=== PATIENT | female | born 1990 | race Caucasian/White ===

== ENCOUNTER → 2016-05-08 13:48 | Outpatient (CLI) | payer MEDICAID ==
[~2016-05-08 13:48] MED LIST: IBUPROFEN600 MG PO; PERCOCET 5-3251 TAB PO; PRENATAL COMPLE1 TAB PO
[2016-05-15 04:28] VITALS: BMI 37.3
== END | disposition home or self-care (01) ==
LOC: D.LDO 13:48
DX: O36.8130 Decreased fetal movements, third trimester, not applicable or unspecified (principal); Z3A.38 38 weeks gestation of pregnancy

== ENCOUNTER 2016-05-15 04:11 | Inpatient (IN) | payer MEDICAID ==
[2016-05-15] VITALS (8 sets, daily range): BP systolic 105–136; BP diastolic 55–86; Ht 172.7 cm; Wt 111.1 kg
[~2016-05-15] VITALS: Ht 172.7 cm; Wt 111.1 kg
[2016-05-15] MEDS ORDERED: PRENATAL COMPLE1 TAB PO (04:27)
[2016-05-15 06:35] LABS: HEMOGLOBIN 11.7 g/dL (12-16); MCH 28.5 pg (26.0-34.0); MCHC 33.4 g/dL (31.0-37.0); MCV 85.4 fL (80.0-100.0); MEAN PLATELET VOLUME 11.2 fL (7.4-10.4); RBC 4.1 10x6/uL (4.00-5.40); RDW 13.3 % (11.5-14.5); WBC 9.8 10x3/uL (4.8-10.8)
[2016-05-15 06:50] LABS: APPEARANCE CLEAR (CLEAR); BILIRUBIN NEGATIVE (NEGATIVE); COLOR STRAW (YELLOW); GLUCOSE NEGATIVE (NEGATIVE); KETONE NEGATIVE (NEGATIVE); LEUKOCYTE ESTERASE NEGATIVE (NEGATIVE); NITRITE NEGATIVE (NEGATIVE); PROTEIN NEGATIVE (NEGATIVE); UROBILINOGEN NORMAL (NORMAL)
[2016-05-15 06:51] LABS: BACTERIA MODERATE /hpf (NONE SEEN); EPITHELIAL CELLS 0-5 /hpf (0-5); RED CELLS - URINE 0-5 /hpf (0-5); WHITE CELLS - URINE 0-5 /hpf (0-5)
--- NOTE | 2016-05-15 19:13 | NUR ---
PT. REQUESTING PAIN MEDS. DR. CAREY ON UNIT AND INFORMED AND QUESTIONED ABOUT ORAL MEDS VERSES IV MEDS. STATES TO CALL ANES.
--- NOTE | 2016-05-15 19:22 | NUR ---
POC EXPLAINED TO PT. PT. INFORMED THAT OR STILL WORKING AT THIS TIME SO BTL IS STILL PENDING. PT. STATES UNDERSTANDING.
--- NOTE | 2016-05-15 19:24 | NUR ---
PT. RATES ABD. CRAMPING AN 8 OF 10 ON PAIN SCALE. PT. LAUGHING AND TALKING WITH FAMILY. RELATES THAT SHE IS UNABLE TO LIFT RT LEG ALTHOUGH CAN LIFT LT. LEG. PAIN MED GIVEN ORDERED. BREATH SOUNDS CLEAR. FUNDUS 2/U AND LOCHIA RUBRA MOD. IV OF LR FLOW RATE DECREASED TO 50CC/HR. IV NOTED IN RT. FOREARM AND WITHOUT EDEMA NOR REDNESS AT SITE.
--- NOTE | 2016-05-15 19:30 | NUR ---
16F ZAMORA CATH. INSERTED PER HOSPITAL PROCEDURE WITH IMMED. RETURN OF 425CC. FUNDUS FIRM U/2. CHELY CARE GIVEN AND CHELY PADS APPLIED. HOB ELEVATED PER PT. REQUEST.
--- NOTE | 2016-05-15 20:15 | NUR ---
LYING ON BACK WITH EYES CLOSED. RESPIRATIONS REGULAR. PT. DOES NOT AROUSE TO THIS NURSE IN ROOM. LIGHTS DIMMED IN ROOM PRESENTLY.
--- NOTE | 2016-05-15 20:55 | NUR ---
PT. CALLED INQUIRING IF ANYONE HAD HEAR WHEN HER BTL WOULD BE DONE. INFORMED THAT DR. CAREY HAD BEEN TO THE OR AND THEY EXPECTED THE CURRENT CASE TO COMPLETE IN 10 MINUTES AND THEN PLANS WOULD BE MADE FOR HER BTL. PT. STATES UNDERSTANDING.
--- NOTE | 2016-05-15 21:41 | NUR ---
AT PRESENT. SCDS APPLIED. OR STATES THEY SHOULD BE READY FOR PT. IN 20 MINUTES.
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
--- NOTE | 2016-05-15 22:05 | NUR ---
TO OR VIA CART. REPORT TO DIRECTOR OF HOME ECONOMICS PER DR. CAREY AND THIS NURSE INFORMED DIRECTOR OF HOME ECONOMICS THAT NO PRE-OPS WERE ORDERED.
--- NOTE | 2016-05-15 23:45 | NUR ---
RECEIVED VIA CART FROM POST TUBAL LIGATION. PT. LETHARGIC BUT AWAKE. STATES SHE IS SLEEPY. BREATH SOUNDS CLEAR AND BOWEL SOUNDS AUDIBLE. ABD. DRESSING NOTED AT UMBILICUS WHICH IS CLEAN AND DRY. IV IN RT. FOREARM WITHOUT REDNESS NOR EDEMA. LACTATED RINGERS FLOW RATE AT 125CC/HR VIA PUMP. CHELY PAD CHANGED AND LOCHIA RUBRA MOD. SCDS CONNECTED TO SLEEVES ALREADY ON LOWER LEGS AND PUMP ON AND FUNCTIONAL. ICE WATER OFFERED BUT PT. DECLINED. ICE CAP TO INCISION AREA. SIDE RAILS UP X 2. PT. REQUEST INFANT REMAIN IN NBN UNTIL SHE REQUEST HIM TO ROOM. NBN INFORMED OF SAME. CALL LIGHT WITHIN PT. REACH.
[2016-05-16] VITALS (15 sets, daily range): BP systolic 101–138; BP diastolic 55–81
--- NOTE | 2016-05-16 00:47 | NUR ---
AWAKE AT PRESENT. SITTING WITH HOB AT 30 DEGREES. ABLE TO LIFT BOTH LEGS VOLUNTARILY. SCDS ON AND FUNCTIONAL. ABD. DRESSING DRY AND INTACT. EATING FOOD BROUGHT FROM OUTSIDE. DENIES ANY NEEDS AT THIS TIME.
--- NOTE | 2016-05-16 00:50 | NUR ---
PT. EATING FOOD BROUGHT FROM OUTSIDE.
--- NOTE | 2016-05-16 01:39 | NUR ---
PT. LYING ON BACK WITH EYES CLOSED. RESPIRATIONS REGULAR.
--- NOTE | 2016-05-16 02:10 | NUR ---
PT WITH FULL ROM OF BLE. DENIES FEELINGS OF NUMBNESS/TINGLING TO BLE. ZAMORA CATHETER D/C'D PER ORDERS. 250 MLS CLEAR LIGHT YELLOW URINE PRESENT IN UROMETER. PT REQUESTED THAT SCD'S BE REMOVED D/T BEING UNCOMFORTABLE ON BLE AND BLE BEING HOT. STATES THAT SHE KNOWS THAT THEY ARE TO PREVENT BLOOD CLOTS SHE JUST ISN'T COMFORTABLE WITH THEM ON. FOLLOWING REMOVAL OF CATHETER PT STATES THAT SHE FEELS SHE NEEDS TO VOID. ASSISTED TO BATHROOM, VOIDED APPROXMATELY 25 MLS IN HAT, 1 SMALL DIME SIZED CLOT IN HAT FOLLOWING VOID WITH MODERATE AMT RUBRA LOCHIA TO PERIPAD. INSTRUCTED AND DEMONSTRATED TO PT PERICARE USING IODINE, WATER, AND PERIBOTTLE. DISPOSABLE PANTIES AND NEW PERIPAD GIVEN. CHUX CHANGED, GOWN CHANGED. ASSISTED BACK TO BED. PT REQUESTS BE BROUGHT TO ROOM TO NURSE. NBN NOTIFIED AND INFANT TAKEN TO ROOM.
--- NOTE | 2016-05-16 03:23 | NUR ---
PT CALLED VIA CL, REQUESTS INFANT BE TAKEN BACK TO NBN. PT STATES THAT SHE IS GOING TO TRY TO TAKE A NAP AND WOULD LIKE INFANT BACK TO BREAST FEED AT NEXT SCHEDULED FEEDING. TO NBN AND NBN RN INFORMED OF PT REQUEST.
--- NOTE | 2016-05-16 04:34 | NUR ---
LYING IN RT TILT WITH EYES CLOSED AND RESPIRATIONS REGULAR. SIDE RAILS UP X 2.
[2016-05-16 05:15] LABS: RAPID PLASMA REAGIN Non Reactive (Non Reactive)
--- NOTE | 2016-05-16 05:38 | NUR ---
ASSIST UP TO BATHROOM TO VOID. 400 MLS VOIDED IN HAT. MODERATE AMT RUBRA LOCHIA NOTED TO PERIPAD, NO CLOTS. PERIPADS CHANGED. PT CLEANSED PERINUM. CHX CHANGED.
--- NOTE | 2016-05-16 05:54 | NUR ---
PAIN 8/10 TO ABD, REPORTS THAT INCISION IS BURNING, STINGING, AND SORE WITH INTERMITTENT ABD CRAMPING. REQUESTS MOTRIN AND PERCOCET TOGETHER, GIVEN PER ORDER AND REQUEST, SEE EMAR. CL/PHONE WITHIN REACH, BED IN LOW POSITION WITH UPPER SIDE RAILS RAISED X2. ICE WATER AND NEW ICE PACK GIVEN.
--- NOTE | 2016-05-16 06:12 | NUR ---
INFANT BROUGHT TO PATIENT PER HER REQUEST FOR .
--- NOTE | 2016-05-16 06:36 | NUR ---
PAIN REASSESSMENT COMPLETED. PT STATES THAT SHE HAS NO PAIN AT THIS TIME. SITTING UP IN BED BONDING WITH . DENIES NEEDS AT THIS TIME.
[2016-05-16 06:41] LABS: BASOPHILS 0.2 % (0.0-2.0); EOSINOPHILS 1.2 % (0-7); HEMATOCRIT 31.2 % (36.0-48.0); HEMOGLOBIN 9.9 g/dL (12-16); IMMATURE GRANULOCYTES 0.2 % (0-5); LYMPHOCYTES 18.8 % (15-50); MCHC 31.7 g/dL (31.0-37.0); MCV 85.2 fL (80.0-100.0); MEAN PLATELET VOLUME 10.9 fL (7.4-10.4); MONOCYTES 6.1 % (2-11); NEUTROPHILS 73.5 % (40-80); PLATELET COUNT 224 10x3/uL (130-400); RBC 3.66 10x6/uL (4.00-5.40); RDW 13.4 % (11.5-14.5); WBC 9.3 10x3/uL (4.8-10.8)
--- NOTE | 2016-05-16 07:20 | NUR ---
PT SITTING UP IN BED EATING BREAKFAST. DENIES NEEDS- DENIES PAIN. ASSESMENT DONE. SMALL LICHIA NOTED ON PAD. SMALL ABD DRESSING AT UMBILICUS CD&I.
--- NOTE | 2016-05-16 09:53 | NUR ---
PT RESTING AT THIS TIME. FRESH WATER GIVEN. INFO SHEET ON MMR VACCINE GIVEN.
--- NOTE | 2016-05-16 11:00 | NUR ---
PT STATES THAT SHE WOULD LIKE TO GO HOME TODAY. INFORMED NURSERY.
--- NOTE | 2016-05-16 11:26 | NUR ---
RINGS CALL LIGHT- REQUESTING PAIN MEDICATION. CO CRAMPING - RATES PAIN AN 8 ON SCALE OF 0-10. PT REQUESTS PERCOCET 5 INSTEAD OF 10. MEDICATIONG GIVEN.
--- NOTE | 2016-05-16 11:28 | NUR ---
SITTING UP IN BED EATING FOOD BROUGHT FROM OFFICE.
--- NOTE | 2016-05-16 11:40 | NUR ---
PEDI TO ROOM TO SEE PT. PEDI AT DESK AND STATES THAT COULD PROB DISCHARGE IF MOM DOES.
--- NOTE | 2016-05-16 12:30 | NUR ---
UP TO SHOWER. PARTIAL LINEN CHANGE DONE.
--- NOTE | 2016-05-16 13:35 | NUR ---
RESTING IN BED. DENIES NEEDS. LIGHTS IN ROOM DIMMED.
--- NOTE | 2016-05-16 13:40 | NUR ---
dr jon in unit to see pt- new orders received.
[2016-05-16] MEDS ORDERED: IBUPROFEN600 MG PO (13:47)
[2016-05-16] MEDS ORDERED: PERCOCET 5-3251 TAB PO (13:47)
--- NOTE | 2016-05-16 14:00 | NUR ---
dressing over btl incision removed. no drainage- appearance wnl.
--- NOTE | 2016-05-16 16:15 | NUR ---
DISCHARGE INST VERBAL AND WRITTEN GIVEN. PRESCRIPTIONS X2 GIVEN WITH PT MED REC AND DRUG INFO SHEETS. PT CARE SUMMAARY GIVEN. PFW POST INST GIVEN.
--- NOTE | 2016-05-16 16:25 | NUR ---
PT DENIES QUESTIONS ABOUT DISCHARGE. APPOINTMENT CARD ALSO GIVEN.
--- NOTE | 2016-05-16 16:48 | NUR ---
PT RINGS CALL LIGHT- REQUESTING PAIN MEDICATION- CO CRAMPING AND RATES PAIN A 7 ON SCALE OF 0-10.
--- NOTE | 2016-05-18 13:33 | OP ---
PATIENT NAME: AMANDA TAYLOR MEDICAL RECORD: [id number] :90 LOCATION:[id number] ADMISSION DATE:05/15/16 SURGEON: LOUIE WHITTINGTON MD DATE OF OPERATION: 05/15/2016 PREOPERATIVE DIAGNOSES: 1. Desired sterility. 2. Multiparity, immediately after term spontaneous vaginal delivery. POSTOPERATIVE DIAGNOSES: 1. Desired sterility. 2. Multiparity, immediately after term spontaneous vaginal delivery. SURGEON: Louie Whittington MD ANESTHESIA: Epidural anesthesia with Josh Cleaning CRNA PROCEDURE: sterilization via bilateral distal salpingectomy. FINDINGS: Normal appearing uterus, ovaries and tubes. SPECIMENS: 1. Right distal fallopian tube/fimbria. 2. Left distal fallopian tube/fimbria. DESCRIPTION OF PROCEDURE: After informed consent was given, the patient was taken to the operating room where epidural anesthesia was bolused and was found to be adequate. Local infiltration of the surgical site was accomplished with 10 cc of 0.25% Marcaine without epinephrine. The skin was then grasped in the infraumbilical region with 2 Allis clamps. These were elevated and a transverse incision was made with the scalpel and carried down to the underlying layer of fascia. The fascia was incised and this was extended bilaterally with the Moses scissors. The rectus muscles were in the midline. The peritoneum identified and grasped with 2 hemostats. This was then entered sharply and a finger was placed through this digitally. The uterus was palpated and a finger was then used as a guide below the lateral aspects of the tissue bilaterally and the Bovie was used to open the lateral aspects of the incision bilaterally. Army-Evening Shade retractors were then placed through the incision to allow visualization of the uterus and adnexa. The left fallopian tube was visualized, grasped with Jannette clamp, followed out to its fimbriated edge and grasped with a second Aladdin clamp. This was then gently held on traction as a defect was created in the mesosalpinx with the Bovie cautery. Two hemostats were then used, one to clamp the more proximal portion of the fallopian tube and the other to clamp the mesosalpinx at the distal aspect of the fallopian tube and fimbria. The Bovie was then used to excise the distal fallopian tube and fimbria and this was passed off the field as specimen. A 3-0 Vicryl stick ties were then used in a [id number] fashion to suture ligate the 2 pedicles. Excellent hemostasis was noted. Attention was then turned to the left side. The left fallopian tube was visualized, grasped with a Jannette clamp, followed out to its fimbriated edge. A second clamp was then used to grasp the fallopian tube more proximally. Two small defects were created in the mesosalpinx with the Bovie cautery and 3 hemostats were then used to grasp the more proximal portion of the fallopian tube and 2 portions of the mesosalpinx. The Bovie cautery was then used to excise the fallopian tube and the left distal fallopian tube and fimbria were then passed off the field as specimen and the 3 pedicles were suture OPERATIVE REPORT [id number] AMANDA TAYLOR ligated with 3-0 Vicryl stick ties. Excellent hemostasis was noted. Both regions were observed once again to ensure hemostasis and hemostasis was assured. The fascia and peritoneum were then closed in 1 layer with 0 Vicryl in a running fashion, locking the first suture. The subcutaneous tissue was closed in 3 layers due to the estimated subcutaneous tissue thickness of 6 cm. Once this negative space was reapproximated with 3-0 Vicryl suture in a running fashion, the skin was closed with 3-0 Monocryl in a subcuticular fashion. Dermabond and an air strip dressing were then applied. Excellent hemostasis was noted. Sponge, lap, needle, and instrument counts were reported correct times 2 and the patient was taken to the recovery room in stable condition. ESTIMATED BLOOD LOSS: Less than 50 cc. URINE OUTPUT: 100 cc. COMPLICATIONS: None. TRANSINT:[id number] Voice Confirmation ID: [id number] DOCUMENT ID: [id number] LOUIE WHITTINGTON MD at 1333 CC: [id number] DICTATION DATE: 05/15/162319 EARLY CHILDHOOD EDUCATION SPECIALIST: 05/16/16 0031 DIS IN 05/16/[address] [facility] [address] [place] [address]
== END 2016-05-16 18:16 | disposition home or self-care (01) | DRG 767 ==
LOC: D.LD 04:11
PROVIDERS: ADMIT Specialist
PROC: 0UT70ZZ Resection of Bilateral Fallopian Tubes, Open Approach (ICD-10-PCS; 2016-05-15)
PROC: 3E033VJ Introduction of Other Hormone into Peripheral Vein, Percutaneous Approach (ICD-10-PCS; 2016-05-15)
PROC: 10E0XZZ Delivery of Products of Conception, External Approach (ICD-10-PCS; principal; 2016-05-15 13:00)
DX: O99.214 Obesity complicating childbirth (principal); Z3A.39 39 weeks gestation of pregnancy; Z37.0 Single live birth; O69.81X0 Labor and delivery complicated by cord around neck, without compression, not applicable or unspecified; O70.0 First degree perineal laceration during delivery; O09.43 Supervision of pregnancy with grand multiparity, third trimester; Z30.2 Encounter for sterilization; Z30.09 Encounter for other general counseling and advice on contraception